=== PATIENT | male | born 1995 | race Caucasian/White ===

== ENCOUNTER 2019-12-02 08:26 | Outpatient (CLI) | payer MEDICAID, SELFPAY ==
[2019-12-03 17:56] LABS: COVID-19 RT-PCR Result NEGATIVE (Negative)
== END 2019-12-02 08:46 ==
PROVIDERS: PCP Family Medicine; Visit Provider Obstetrics & Gynecology Reproductive Endocrinology
DX: Z11.59 Encounter for screening for other viral diseases (principal)
CPT/HCPCS: U0003

== ENCOUNTER 2019-12-02 11:34 | Outpatient (CLI) | payer MEDICAID, SELFPAY ==
[2019-12-05 15:12] LABS: Chlamydia Result Negative (Negative); GC Result Negative (Negative)
== END 2019-12-02 11:54 ==
PROVIDERS: PCP Family Medicine; Visit Provider Obstetrics & Gynecology Reproductive Endocrinology
DX: Z11.3 Encounter for screening for infections with a predominantly sexual mode of transmission (principal); Z11.59 Encounter for screening for other viral diseases
CPT/HCPCS: 87491; 87591; U0003; 86704